=== PATIENT | male | born 1985 | race Hispanic/Latino ===

== ENCOUNTER 2018-08-22 12:43 | Emergency (ER) | payer SELFPAY ==
[2018-08-22] MEDS ORDERED: Fluorescein Opthalmic Strip ONE (13:01)
[2018-08-22] MEDS ORDERED: Adacel (T-DAP) 0.5 ML SYRINGE ONE (13:55)
== END 2018-08-22 14:17 | disposition home or self-care (01) ==
LOC: NAV ERS 12:43
DX: T15.12XA Foreign body in conjunctival sac, left eye, initial encounter (principal); F17.210 Nicotine dependence, cigarettes, uncomplicated
CPT/HCPCS: 90471; 90715